=== PATIENT | female | born 2000 | race Caucasian/White ===

== ENCOUNTER 2023-11-29 13:00 | Emergency (ER) | payer OTHER, SELFPAY ==
[2023-11-29 13:02] VITALS: BP 127/90
--- NOTE | 2023-11-29 13:56 | ED.SKININJ ---
HPI-Injury
General
Chief Complaint: Bite
Source: patient
Exam Limitations: none
Time Seen by Provider: 11/29/23 13:38
Nursing documentation reviewed up to this point in time: agreed with
Travel History
Have you had any contact with someone who has COVID-19?: No
Do you have any symptoms of coronavirus? Fever > 100 degrees, chills, cough, shortness of breath, sore throat, loss of taste or smell, muscle aches, or headache?: No
History of Present Illness-Injury
Initial Injury comments:
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 She reports the dog's shots are up-to-date. She is up-to-date on tetanus. She is right-hand dominant. She denies any
other injuries.
Review of Systems
Review of Systems
Allergies reviewed?: Yes
All Other Systems: ROS reviewed and negative except as documented in HPI and ROS
Constitutional: Reports no symptoms; Denies fever, fatigue or chills
Musculoskeletal: Reports other (dog bite to left hand )
Skin: Reports other (see above )
Neurological: Reports no symptoms
Hematologic/Lymphatic: Reports no symptoms
Psychiatric: Reports no symptoms
Phy Exam
General Physical Exam
General Presentation: no apparent distress
General age: appears stated age
General Skin: warm and dry
General Habitus: normal
General Mental: alert
General Hydration: appears well hydrated
Neurological Exam
Neurological Exam: alert and oriented x3
Musculoskeletal Exam
Musculoskeletal Exam: full ROM and other (Left upper extremity with small superficial areas of redness at sites of dog bite to left first metacarpal and left wrist no obvious swelling no bony tenderness, full rom to fingers/hand /wrist )
Skin Exam
Skin Exam: normal color and warm/dry
Psychiatric Exam
Psychiatric Exam: normal mood/affect
Course
Orders/Labs/Results
Orders:
Orders
11/29/23 13:55
Amoxicillin 875 mg/Clav 125 mg [Augmentin 875 mg/125 mg] 1 tablet PO NOW STA
Vital Signs
Initial and Last Documented VS:
Initial Vital Signs
Temp Pulse Resp BP Pulse Ox
98.1 F 95 18 127/90 99
11/29/23 13:02 11/29/23 13:02 11/29/23 13:02 11/29/23 13:02 11/29/23 13:02
Last Documented Vital Signs
Temp Pulse Resp BP Pulse Ox
98.1 F 95 18 127/90 99
11/29/23 13:02 11/29/23 13:02 11/29/23 13:02 11/29/23 13:02 11/29/23 13:02
MDM/Problems Addressed
Differential Diagnosis Includes:
Not limited to dog bite
MDM/Problems Addressed:
Patient with superficial dog bite to left hand/thumb area.. Dog shots are up-to-date rabies vaccine confirmed. Patient is up-to-date on tetanus. Despite superficial bite we will still treat with prophylactic Augmentin to prevent infection wound
care and risk of infection/symptoms reviewed with patient
*Critical Care Note
Total Time (30-74mins, 75-104mins- exclusive of procedures): Not Applicable
ED Attending Note
-
Portions of this chart may have been created with voice recognition software.� Occasional wrong word or��sound alike� substitutions may have occurred due to the inherent limitations of voice recognition software.
Discharge Plan
Departure
Patient Disposition: Home (Routine Discharge)
Date of Disposition: 11/29/23
Time of Disposition: 13:56
Patient with high blood pressure during this ER visit?: Yes
Condition: Fair
Covid-19: Not Applicable
Discharge Problem:
Dog bite
Instructions: Animal Bites (DC), Wound Care (DC)
Prescriptions:
New
amoxicillin-pot clavulanate 875-125 mg tablet
1 tab PO BID Qty: 10 0RF
Activity Restrictions/Additional Instructions:
Wash area with soap and water twice a day. Antibiotic as directed once every 12 hours for the next 5 days. Follow-up with work-health as needed in the next several days .
return if any worsening of symptoms if any evidence of infection :increased pain swelling redness drainage fever chills red streaking.
Interventions
Interventions:
*Risk Screen - Suicide Last Done: 11/29/23 13:02
*Neglect/Abuse Screening Last Done: 11/29/23 13:02
*ED COVID-19 Vaccine History Last Done: 11/29/23 13:02
ED-Skin Assessment Last Done: 11/29/23 13:28
Discharge Date and Time
Print Language: FRISIAN
[2023-11-29] MEDS: AUGMENTIN 875 MG/125 MG 1 TABLET PO (14:04)
== END 2023-11-29 14:05 | disposition home or self-care (01) ==
LOC: EMR 13:00
PROVIDERS: EMERGENCY PHYSICIAN Emergency Medicine; FAMILY PHYSICIAN Family Medicine
DX: S61.452A Open bite of left hand, initial encounter (principal); W54.0XXA Bitten by dog, initial encounter; R03.0 Elevated blood-pressure reading, without diagnosis of hypertension; X58.XXXA Exposure to other specified factors, initial encounter; Y93.K9 Activity, other involving animal care; Y92.89 Other specified places as the place of occurrence of the external cause; Y99.0 Civilian activity done for income or pay
CPT/HCPCS: 99283

== ENCOUNTER 2025-05-28 20:25 | Emergency (ER) | payer SELFPAY ==
[2025-05-28 20:27] VITALS: BP 144/96
--- NOTE | 2025-05-29 00:24 | ED.GENMED ---
History of Present Illness
General
Chief Complaint: Head Injury
Source: patient
Exam Limitations: none
Time Seen by Provider: 05/28/25 23:02
Nursing documentation reviewed up to this point in time: agreed with
History of Present Illness
History of Present Illness:
Accidentally hit by basketball while at work tonight. No LOC Hit on lef side of head. Complains of headache, feeling'foggy'. TO ED accompanied by mother.
Past History
Past History
ED Past Medical History: None
ED Past Surgical History: None
Review of Systems
Review of Systems
Allergies reviewed?: Yes
All Other Systems: ROS reviewed and negative except as documented in HPI and ROS
Constitutional: Reports no symptoms
EENT: Reports no symptoms
Respiratory: Reports no symptoms
Cardiac: Reports no symptoms
ABD/GI: Reports no symptoms
: Reports no symptoms
Musculoskeletal: Reports no symptoms
Skin: Reports no symptoms
Neurological: Reports headache
Psychiatric: Reports no symptoms
Phy Exam
General Physical Exam
General Presentation: well appearing and mild distress
General age: appears stated age
General Skin: warm
General Habitus: normal
General Mental: alert
ENT Exam
ENT Exam: EOMI and TM's normal
Eye Exam
Eye Exam: PERRL, EOMI and conjunctiva normal
Neurological Exam
Neurological Exam: alert, oriented x3, CN II-XII intact, no motor deficits and speech normal
Juan Coma Scale
Eye Opening: Spontaneous
Verbal Response: Oriented
Motor Response: Obeys Commands
GCS Total Score: 15
Mental
Mental Status: oriented to person, oriented to place, oriented to time and usual mental status
Describe Speech: normal speech
Cranial
Cranial Nerves: normal
EOM (CN3/4/6): intact
Motor
Seizure Activity: none
Gait: normal
Other Movement Disorders: none
Right upper extremity: 4
Right lower extremity: 4
Left upper extremity: 4
Left lower extremity: 4
Bilateral upper extremities: 4
Bilateral lower extremities: 4
Sensory
Sensory Exam: intact
Cerebellar
Cerebellar Function: normal finger to nose, normal heel to carrington and normal Romberg test
Musculoskeletal Exam
Musculoskeletal Exam: full ROM and neuro vasc intact
Skin Exam
Skin Exam: normal color, warm/dry and no rash
Psychiatric Exam
Psychiatric Exam: normal mood/affect
Course
Orders/Labs/Results
Orders:
Orders
05/28/25 23:15
CT Head W/o Iv Contrast Urgent
Comment:
Reason For Exam: Head injury/blurry vision
Vital Signs
Initial and Last Documented VS:
Initial Vital Signs
Pulse Resp BP Pulse Ox
102 18 144/96 99
05/28/25 20:27 05/28/25 20:27 05/28/25 20:27 05/28/25 20:27
Last Documented Vital Signs
Pulse Resp BP Pulse Ox
102 18 144/96 99
05/28/25 20:27 05/28/25 20:27 05/28/25 20:27 05/29/25 00:27
*Radiology
Radiology exam reviewed: radiology read reviewed
*Pulse Oximetry
SaO2: 99
Oxygen Mode of Delivery: Room air
Patient hypoxic: no
*Critical Care Note
Total Time (30-74mins, 75-104mins- exclusive of procedures): Not Applicable
Update Note
Update Note:
Patient to ED after hit on left side ofhead with basketball. Neuro exam unremarkable. Mother reports she is at her baseline. CT neg for acute findings. Will discharge home and she will follow up with her workman's comp provider. Given
instructions on s/s to return to ED and she is agreeable to plan.
ED Attending Note
-
Portions of this chart may have been created with voice recognition software.� Occasional wrong word or��sound alike� substitutions may have occurred due to the inherent limitations of voice recognition software.
Discharge Plan
Departure
Patient Disposition: Home (Routine Discharge)
Date of Disposition: 05/28/25
Time of Disposition: 23:45
Patient with high blood pressure during this ER visit?: No
Condition: Good
Covid-19: Not Applicable
Discharge Problem:
Head injury
Instructions: Head Injury in Adults (DC)
Prescriptions:
No Action
amoxicillin-pot clavulanate 875-125 mg tablet
1 tab PO BID Qty: 10 0RF
Referrals:
Catalina Arguelles MD [Family Provider, Family Practice]
Stand Alone Forms: Return to Work
Activity Restrictions/Additional Instructions:
Follow up with your workman's comp provider for clearanc to return to work.
Interventions
Interventions:
*Risk Screen - Suicide Last Done: 05/28/25 20:27
*General Assessment Last Done: 05/28/25 20:27
*Neglect/Abuse Screening Last Done: 05/28/25 23:04
*ED- Fall Risk Assessment Last Done: 05/28/25 20:27
*ED COVID-19 Vaccine History Last Done: 05/28/25 20:27
*ED Influenza Vaccine History Last Done: 05/28/25 20:27
*Nursing Disposition Last Done: 05/29/25 00:10
ED- Neurological Assessment Last Done: 05/28/25 23:04
ED-Skin Assessment Last Done: 05/28/25 23:04
Discharge Date and Time
Discharge Date/Time: 05/29/25 00:11
Print Language: EMIRATI
== END 2025-05-29 00:11 | disposition home or self-care (01) ==
LOC: EMR 20:25
PROVIDERS: EMERGENCY PHYSICIAN Emergency Medicine; FAMILY PHYSICIAN Family Medicine
DX: S09.90XA Unspecified injury of head, initial encounter (principal); W21.05XA Struck by basketball, initial encounter; Y99.0 Civilian activity done for income or pay
CPT/HCPCS: 99284; 70450

== ENCOUNTER → 2025-07-29 16:43 | Outpatient (REF) | payer OTHER, SELFPAY | LOC: PAVMRI 16:43 | PROVIDERS: ATTENDING PHYSICIAN Family Medicine | DX: R51.9 Headache, unspecified (principal); G25.9 Extrapyramidal and movement disorder, unspecified | CPT/HCPCS: 70551 ==